=== PATIENT | male | born 1965 | race Caucasian/White ===

== ENCOUNTER 2016-10-03 10:53 | Emergency (ER) | payer OTHER ==
[~2016-10-03] VITALS: Ht 182.9 cm; Wt 82.6 kg
[~2016-10-03 10:53] MED LIST: FLEXERIL10 MG PO; NEURONTIN300 MG PO
[2016-10-03] MEDS ORDERED: KEFLEX500 MG PO (12:05)
[2016-10-03 14:56] VITALS: BP 136/89
== END 2016-10-03 14:58 | disposition home or self-care (01) ==
LOC: EME 10:53
DX: S62.617B Displaced fracture of proximal phalanx of left little finger, initial encounter for open fracture (principal); S61.215A Laceration without foreign body of left ring finger without damage to nail, initial encounter; W22.8XXA Striking against or struck by other objects, initial encounter; Y93.89 Activity, other specified; Y99.0 Civilian activity done for income or pay; Z23 Encounter for immunization
CPT/HCPCS: 73130; 99281; 99283; J0690; J2270